=== PATIENT | male | born 1965 | race American Indian/Alaskan Native ===

== ENCOUNTER 2021-03-23 02:31 | Emergency (ER) | payer SELFPAY ==
[2021-03-23 03:22] LABS: Basophils % (Auto) 0.2 % (0.0-1.8); Eosinophils # (Auto) 0.1 K/mm3 (0.0-0.4); Eosinophils % (Auto) 1.2 % (0.0-4.3); Hematocrit 46.4 % (35.5-45.6); Hemoglobin 15.1 gm/dl (11.8-15.2); Lymphocytes # (Auto) 1.2 K/mm3 (1.2-5.4); Lymphocytes % (Auto) 10.5 % (13.4-35.0); Mean Corpuscular HGB Conc 33 % (32-34); Mean Corpuscular Volume 87 fl (84-94); Monocytes # (Auto) 1.5 K/mm3 (0.0-0.8); Monocytes % (Auto) 13.1 % (0.0-7.3); Platelet Count 244 K/mm3 (140-440); Red Blood Count 5.35 M/mm3 (3.65-5.03)
[2021-03-23 03:36] LABS: Alanine Aminotransferase 17 units/L (7-56); Albumin 3.9 g/dL (3.9-5); BUN/Creatinine Ratio 16; Blood Urea Nitrogen 14 mg/dL (9-20); Hemolysis Index 10
[2021-03-23 06:44] VITALS: BP 117/64
--- NOTE | 2021-03-23 06:46 | Emergency Department Report ---
ED Male HPI - General Chief complaint: Abdominal Pain Stated complaint: POSSIBLE KIDNEY STONE Time Seen by Provider: 03/23/21 06:16 Source: patient Mode of arrival: Ambulatory Limitations: No Limitations - History of Present Illness Initial comments: 55-year-old male who denies any significant past medical history presents to the ER today with complaints of a 4-day history of UTI symptoms. He reports hematuria, dysuria, urinary urgency and frequency. He also reports mild suprapubic discomfort and right lower back pain. He denies any fever or chills. He denies any nausea or vomiting. He states that he is and has not had any new sexual partners. He denies any testicular pain, swelling or penile discharge. He denies any history of kidney stones or recurrent UTIs in the past. MD Complaint: dysuria -: Gradual, days(s) - Related Data Previous Rx's Medication Instructions Recorded Last Taken Type Phenazopyridine [Pyridium] 200 mg PO TID PRN #9 tab 03/23/21 Unknown Rx Sulfamethoxazole/Trimethoprim 1 each PO BID #14 tablet 03/23/21 Unknown Rx [Bactrim DS TAB] Allergies Allergy/AdvReac Type Severity Reaction Status Date / Time No Known Allergies Allergy Unverified 03/23/21 02:33 ED Review of Systems ROS: Stated complaint: POSSIBLE KIDNEY STONE Other details as noted in HPI Comment: All other systems reviewed and negative Constitutional: denies: chills, fever Eyes: denies: eye pain, eye discharge, vision change ENT: denies: ear pain, throat pain, dental pain, hearing loss, epistaxis, congestion Respiratory: denies: cough, shortness of breath, SOB with exertion, SOB at rest, wheezing Cardiovascular: denies: chest pain, palpitations, dyspnea on exertion, edema, syncope, paroxysmal nocturnal dyspnea Gastrointestinal: abdominal pain. denies: nausea, vomiting, diarrhea, constipation, hematemesis, melena, hematochezia Genitourinary: urgency, dysuria, frequency, hematuria. denies: discharge, testicular pain, testicular mass Musculoskeletal: back pain Skin: denies: rash, lesions, change in color, change in hair/nails, pruritus Neurological: denies: headache, weakness, numbness, paresthesias, confusion, abnormal gait, vertigo Psychiatric: denies: anxiety, depression, auditory hallucinations, visual hallucinations, homicidal thoughts, suicidal thoughts Hematological/Lymphatic: denies: easy bleeding, easy bruising, swollen glands ED Past Medical Hx - Past Medical History Previous Medical History?: No - Surgical History Past Surgical History?: No - Medications Home Medications: Home Medications Medication Instructions Recorded Confirmed Last Taken Type Phenazopyridine [Pyridium] 200 mg PO TID PRN #9 tab 03/23/21 Unknown Rx Sulfamethoxazole/Trimethoprim 1 each PO BID #14 tablet 03/23/21 Unknown Rx [Bactrim DS TAB] ED Physical Exam - General Limitations: No Limitations General appearance: alert, in no apparent distress - Head Head exam: Present: atraumatic, normocephalic, normal inspection - Eye Eye exam: Present: normal appearance, PERRL, EOMI Pupils: Present: normal accommodation - Neck Neck exam: Present: normal inspection, full ROM. Absent: meningismus - Respiratory Respiratory exam: Present: normal lung sounds bilaterally. Absent: respiratory distress, wheezes, rales, rhonchi - Cardiovascular Cardiovascular Exam: Present: regular rate, normal rhythm, normal heart sounds - GI/Abdominal GI/Abdominal exam: Present: soft. Absent: distended, tenderness, guarding - Back Exam Back exam: Present: normal inspection, full ROM. Absent: CVA tenderness (R), CVA tenderness (L) - Neurological Exam Neurological exam: Present: alert, oriented X3, CN II-XII intact, normal gait - Psychiatric Psychiatric exam: Present: normal affect, normal mood ED Course Vital Signs 03/23/21 02:36 Temperature 97.6 F Pulse Rate 99 H Respiratory 18 Rate Blood Pressure 117/64 O2 Sat by Pulse 96 Oximetry ED Medical Decision Making - Lab Data Result diagrams: 03/23/21 02:38 03/23/21 02:38 - Medical Decision Making CBC and CMP reviewed with doubt any significant abnormality. Urinalysis is positive for UTI. Reflex urine culture is pending. Patient is nontoxic, not ill-appearing and not in significant distress. He appears well-hydrated. He has a soft nontender abdomen. No CVA tenderness. He is neurologically intact with normal gait. His vital signs are stable. Discussed results with patient. He will be started on antibiotics for his UTI, and Pyridium for his discomfort. Recommend that he increase his water intake. Follow-up closely with his primary care doctor. Patient expressed understanding of instructions and agree with plan. Patient stable at time of discharge. Critical care attestation.: If time is entered above; I have spent that time in minutes in the direct care of this critically ill patient, excluding procedure time. ED Disposition Clinical Impression: UTI (urinary tract infection) Disposition: 01 HOME / SELF CARE / HOMELESS Is pt being admited?: No Does the pt Need Aspirin: No Condition: Stable Instructions: Urinary Tract Infection, Adult, [id number] Additional Instructions: Recommend a take the Bactrim as prescribed until completion. You can take the Pyridium to help with the pain when you urinate. It will not change your urine orange-red. Increase your water intake. Follow-up with your PCP in 1 week for repeat urinalysis to ensure resolution. Return to the ER if at any point your symptoms worsens in any way. Prescriptions: Sulfamethoxazole/Trimethoprim [Bactrim DS TAB] 1 each PO BID #14 tablet Phenazopyridine [Pyridium] 200 mg PO TID PRN #9 tab PRN Reason: dysuria Referrals: PRIMARY CARE, [Primary Care Provider] - 3-5 Days Time of Disposition: 07:22
[2021-03-23 07:08] LABS: Bacteria,Urine 4+ /HPF (Negative); Bilirubin,Urine NEG (Negative); Blood,Urine LG (Negative); Color,Urine Yellow (Yellow); Mucus,Urine FEW /HPF; Urobilinogen,Urine < 2.0 mg/dL (<2.0)
[2021-03-23 07:10] LABS: WBC,Urine > 182.0 /HPF (0.0-6.0)
== END 2021-03-23 07:36 | disposition home or self-care (01) ==
LOC: ED 02:31
DX: N39.0 Urinary tract infection, site not specified (principal)
CPT/HCPCS: 36415; 80053; 81001; 83690; 85025; 87086; 99283